=== PATIENT | male | born 1955 | race Caucasian/White ===

== ENCOUNTER 2019-03-05 14:22 | Inpatient (IN) | payer MEDICARE, MEDICAID ==
[~2019-03-05] VITALS: Ht 175.3 cm; Wt 58.5 kg
--- NOTE | 2019-03-05 14:30 | NUR ---
ED Nurse Note: Pt BIBA from [facility] d/t low BP. Pt awake, verbal, confused. On room air no acute distress noted. Placed on hospital gown, cont. front desk monitor, and pulse ox.
--- NOTE | 2019-03-05 14:34 | Emergency Room Report ---
History of Present Illness General Chief Complaint: General Complaint Source: Medical Record, EMS Present Illness HPI 63-year-old male presents with failure to thrive, not eating, history of dementia, start date greater than 2 days, no known aggravating relieving factors severity is severe, constant, patient has been throwing up by sticking his fingers in his mouth refusing to eat patient is unable to give a history keeps yelling water Allergies: Coded Allergies: HALOPERIDOL (Verified Allergy, Intermediate, 03/05/19) Patient History Limited by: medical condition - Dementia Past Medical History: see triage record Reviewed Nursing Documentation: PMH: Agreed; PSxH: Agreed Review of Systems All Other Systems: limited - Dementia Physical Exam Vital Signs Date Time Temp Pulse Resp B/P (MAP) Pulse Ox O2 Delivery O2 Flow Rate FiO2 03/05/19 14:21 97.9 80 16 100/60 (73) 97 Room Air Sp02 EP Interpretation: reviewed, normal General Appearance: alert, cachetic, Chronically Ill Head: normocephalic, atraumatic Eyes: bilateral eye PERRL, bilateral eye EOMI ENT: uvula midline, dry mucus membranes Neck: supple, thyroid normal, supple/symm/no masses Respiratory: lungs clear, no respiratory distress, no retraction, no accessory muscle use Cardiovascular #1: normal peripheral pulses, regular rate, rhythm, no edema, no gallop, no murmur Gastrointestinal: non tender, soft, no guarding, no rebound Musculoskeletal: normal inspection Neurologic: alert, responsive Skin: no rash, warm/dry Medical Decision Making Diagnostic Impression: Primary Impression: Failure to thrive in adult Additional Impression: Dehydration ER Course 63-year-old male history of dementia presents with failure to thrive, dehydration patient is refusing to eat foods worsening psychosis, sepsis. Labs show anemia, elevated BUN to creatinine ratio, fluid started We will defer abx administration to Dr. Molina Patient admitted to Dr. Molina Laboratory Tests Test 03/05/19 16:32 03/05/19 17:00 White Blood Count 7.9 K/UL (4.8-10.8) Red Blood Count 3.00 M/UL (4.70-6.10) L Hemoglobin 7.8 G/DL (14.2-18.0) L Hematocrit 24.4 % (42.0-52.0) L Mean Corpuscular Volume 81 FL (80-99) Mean Corpuscular Hemoglobin 26.0 PG (27.0-31.0) L Mean Corpuscular Hemoglobin Concent 31.9 G/DL (32.0-36.0) L Red Cell Distribution Width 13.0 % (11.6-14.8) Platelet Count 478 K/UL (150-450) H Mean Platelet Volume 4.9 FL (6.5-10.1) L Neutrophils (%) (Auto) 68.5 % (45.0-75.0) Lymphocytes (%) (Auto) 20.7 % (20.0-45.0) Monocytes (%) (Auto) 6.6 % (1.0-10.0) Eosinophils (%) (Auto) 2.7 % (0.0-3.0) Basophils (%) (Auto) 1.5 % (0.0-2.0) Prothrombin Time 10.8 SEC (9.30-11.50) Prothrombin Time INR 1.0 (0.9-1.1) PTT 29 SEC (23-33) Sodium Level 137 MMOL/L (136-145) Potassium Level 3.7 MMOL/L (3.5-5.1) Chloride Level 103 MMOL/L (98-107) Carbon Dioxide Level 26 MMOL/L (21-32) Anion Gap 8 mmol/L (5-15) Blood Urea Nitrogen 34 mg/dL (7-18) H Creatinine 0.7 MG/DL (0.55-1.30) Estimate Glomerular Filtration Rate > 60 mL/min (>60) Glucose Level 96 MG/DL (74-106) Lactic Acid Level 1.90 mmol/L (0.4-2.0) Calcium Level 8.4 MG/DL (8.5-10.1) L Phosphorus Level 2.4 MG/DL (2.5-4.9) L Magnesium Level 1.8 MG/DL (1.8-2.4) Total Bilirubin 0.2 MG/DL (0.2-1.0) Aspartate Amino Transferase (AST) 12 U/L (15-37) L Alanine Aminotransferase (ALT) 11 U/L (12-78) L Alkaline Phosphatase 83 U/L (46-116) Total Creatine Kinase 38 U/L (26-308) Creatine Kinase MB 1.4 NG/ML (0.0-3.6) Creatine Kinase MB Relative Index 3.6 Pro-B-Type Natriuretic Peptide 182 pg/mL (0-125) H Total Protein 6.1 G/DL (6.4-8.2) L Albumin 1.9 G/DL (3.4-5.0) L Globulin 4.2 g/dL Albumin/Globulin Ratio 0.5 (1.0-2.7) L Lipase 95 U/L (73-393) Iron Level Pending Unsaturated Iron Binding Pending Vitamin B12 Level Pending Thyroid Stimulating Hormone (TSH) Pending EKG Diagnostic Results EKG Time: 14:54 EP Interpretation: NSR, rate 86, QTc 411, no acute ST elevations Rhythm Strip Diag. Results Rhythm Strip Time: 15:30 EP Interpretation: yes Rate: 84 Rhythm: NSR, no PVC's, no ectopy Chest X-Ray Diagnostic Results Chest X-Ray Diagnostic Results : Chest X-Ray Ordered: Yes # of Views/Limited/Complete: 1 View Indication: Other - Altered mental status EP Interpretation: Yes Interpretation: other - Left pleural effusion Impression: Other - Left pleural effusion Electronically Signed by: Lawrence Villalba MD Last Vital Signs Date Time Temp Pulse Resp B/P (MAP) Pulse Ox O2 Delivery O2 Flow Rate FiO2 03/05/19 14:21 97.9 80 16 100/60 (73) 97 Room Air Disposition: ADMITTED INPATIENT Condition: Stable Lawrence Villalba MD Mar 05, 2019 14:34
[2019-03-05] MEDS ORDERED: ACETAMINOPHEN325 M1 ORAL (14:38)
[2019-03-05] MEDS ORDERED: DEPAKOTE250 MG PO (14:38)
[2019-03-05] MEDS ORDERED: ZYPREXA10 MG ORAL (14:38)
[2019-03-05] MEDS ORDERED: FERROUS SULFAT325 MG ORAL (14:38)
[2019-03-05] MEDS ORDERED: PROTONIX40 MG ORAL (14:38)
[2019-03-05] MEDS ORDERED: COLACE100 MG ORAL (14:38)
[2019-03-05] MEDS ORDERED: VITAMIN D1000 UNI1 ORAL (14:38)
[2019-03-05] MEDS ORDERED: CLOZAPINE200 MG PO (14:38)
[2019-03-05] MEDS ORDERED: DDAVP0.2 MG PO (14:38)
[2019-03-05] MEDS ORDERED: BENZTROPINE ME0.5 MG PO (14:38)
[2019-03-05] MEDS ORDERED: DUONEB 0.5-3(2.53 ML HHN (14:38)
[2019-03-05] MEDS ORDERED: SENNA8.6 M2 PO (14:38)
[2019-03-05] MEDS ORDERED: MULTIVITAMINS1 EAC2 ORAL (14:38)
[2019-03-05] MEDS ORDERED: DULCOLAX10 MG RC (14:38)
[2019-03-05] MEDS ORDERED: FLEET ENEMA133 ML RECTAL (14:38)
[2019-03-05] MEDS ORDERED: TRAZODONE HCL150 MG ORAL (14:38)
--- NOTE | 2019-03-05 14:56 | Diagnostic Imaging Report ---
Indication: Dyspnea Comparison: None A single view chest radiograph was obtained. Findings: Lungs are hyperexpanded. There is a left pleural effusion suspected. Heart size is normal. Bones are osteopenic. IMPRESSION: Suspected left pleural effusion. COPD
[2019-03-05] MEDS ORDERED: DiphenhydrAMINE 50mg/ml Inj IVP ONE (15:00)
[2019-03-05] MEDS ORDERED: LORazepam Inj 2mg/ml 1ml IV ONE (15:00)
--- NOTE | 2019-03-05 15:00 | NUR ---
ED Nurse Note: Pt came in with left lower leg peripheral IV 22g, intact and patent.
[2019-03-05 16:50] LABS: HEMATOCRIT 24.4 % (42.0-52.0); HEMOGLOBIN 7.8 G/DL (14.2-18.0); MEAN CORPUSCULAR VOLUME 81 FL (80-99); PLATELET COUNT 478 K/UL (150-450); WHITE BLOOD COUNT 7.9 K/UL (4.8-10.8)
[2019-03-05 16:52] LABS: BASOPHILS % (AUTO) 1.5 % (0.0-2.0); EOSINOPHILS % (AUTO) 2.7 % (0.0-3.0); LYMPHOCYTES % (AUTO) 20.7 % (20.0-45.0); MONOCYTES % (AUTO) 6.6 % (1.0-10.0); NEUTROPHILS % (AUTO) 68.5 % (45.0-75.0)
--- NOTE | 2019-03-05 17:00 | NUR ---
ED Nurse Note: IV fluids infusing; Patient remains in bed, confused, combative. VSS stable at this time.
[2019-03-05 17:09] LABS: ANION GAP 8 mmol/L (5-15); BLOOD UREA NITROGEN 34 mg/dL (7-18); CALCIUM 8.4 MG/DL (8.5-10.1); CARBON DIOXIDE 26 MMOL/L (21-32); CHLORIDE 103 MMOL/L (98-107); CREATININE 0.7 MG/DL (0.55-1.30); POTASSIUM 3.7 MMOL/L (3.5-5.1); SODIUM 137 MMOL/L (136-145)
[2019-03-05 17:13] LABS: ALANINE AMINOTRANSFERASE 11 U/L (12-78); ALBUMIN 1.9 G/DL (3.4-5.0); ALBUMIN/GLOBULIN RATIO 0.5 (1.0-2.7); ALKALINE PHOSPHATASE 83 U/L (46-116); ASPARTATE AMINO TRANSFERASE 12 U/L (15-37); BILIRUBIN,TOTAL 0.2 MG/DL (0.2-1.0); CKMB 1.4 NG/ML (0.0-3.6); CREATINE KINASE 38 U/L (26-308); PHOSPHORUS 2.4 MG/DL (2.5-4.9)
[2019-03-05 17:37] VITALS: BP 106/85
[2019-03-05] MEDS ORDERED: Milk of Magnesia 30ml Ud ORAL PRN (17:45)
[2019-03-05] MEDS ORDERED: Morphine Sulfate 2mg/ml Inj(IV/IM USE ONLY) IVP PRN (17:45)
[2019-03-05 18:18] VITALS: BP 115/78
--- NOTE | 2019-03-05 18:23 | NUR ---
ED Nurse Note: MRSA/CRE/VRE swabs taken, sent down to lab.
[2019-03-05 18:26] LABS: % IRON SATURATION 9 % (15-50); IRON 15 ug/dL (50-175); TOTAL IRON BINDING CAPACITY 175 ug/dL (250-450)
--- NOTE | 2019-03-05 18:27 | NUR ---
ED Nurse Note: Report given to RANJANA Reilly via telephone.
[2019-03-05] MEDS ORDERED: Enoxaparin 30mg Inj SUBQ SCH (18:45)
--- NOTE | 2019-03-05 18:55 | NUR ---
TRANSFER TO FLOOR: Patient transferred to SDU as telemetry overflow, room 236-2 as ordered, per Dr Molina. Report given to RANJANA Reilly. Transferred patient via VIDYA luciano protocol. Patient remained in stable condition.
[2019-03-05] MEDS: D5W w/KCl 20mEq 1,000 ML IV SCH (19:18)
--- NOTE | 2019-03-05 19:19 | NUR ---
HAND-OFF: Report given to juancarlos drake.
--- NOTE | 2019-03-05 19:25 | NUR ---
NURSE NOTES: Received report form RANJANA Reilly, pt. in bed awake, pt. appears to be A/O X's 1- to name- confused. folder inspector on, pt. appears to be sating well on room air at 97%- no distress noted, bed alarm on, side rails up x's3 and safety brakes engaged, bed alarm on, bed in lowest position, pt. oriented to room and pt. teaching done, VS taken and full body assessment done- skin intact, unable to determine pupils, pt. was brought up from ER and orders already received- prior shift, KISHOR 20G IV intact and patent running D5W w/ KCL 20meq at 5occ/hr, pt. also has Left lower leg IV 22G- will ask doctor if he would like to continue, safety measures continued, will continue to monitor pt. and with plan of care. Addendum: 03/05/19 at 2006 by CARMEN PARTIDA RN RN side rails padded for seizure precautions- no seizure activity noted upon assessment.
[2019-03-05 20:00] VITALS: BP 105/61
[2019-03-05] MEDS: Enoxaparin 40mg Inj SUBQ SCH (20:45)
[2019-03-06] VITALS: BP 102/64
--- NOTE | 2019-03-06 | NUR ---
HAND-OFF: Report given to Justina Rn, in telemetry- pt. remains stable during transfer and no distress noted. Pt. transferred to room 212-2.
--- NOTE | 2019-03-06 00:10 | NUR ---
NURSE NOTES: Pt received from MALORIE from RANJANA Lamb alert and oriented x1 to name only. IV site asymptomatic and patent on L lower leg and R forearm, running to D5W with 20 KCl at 75 as ordered. Bed in lowest position, bed alarm on. Skin intact. Call light and belongings within reach.
[2019-03-06 04:00] VITALS: BP 91/83
[2019-03-06] MEDS ORDERED: LORazepam 1mg tab ORAL PRN (04:15)
--- NOTE | 2019-03-06 07:10 | NUR ---
NURSE NOTES: Nurse report given by RANJANA Frank. Patient's confused, AO x1, no s/s of acute distress or SOB. Bed low and locked, call light within reach, side rails x 3 padded for seizure precaution, safety alarm is on. IVs are present, intact, patent, asymptomatic and running fluid. BP was low 73/48, notified by HELICOPTER PILOT INSTRUCTOR so Zac RN and receiving nurse checked with smaller blood pressure and it is back 110/58. Will continue to monitor.
--- NOTE | 2019-03-06 07:20 | NUR ---
HAND-OFF: Report given to RANJANA Loredo. Plan of care endorsed.
[2019-03-06 07:25] LABS: BASOPHILS % (AUTO) 1.2 % (0.0-2.0); EOSINOPHILS % (AUTO) 2.1 % (0.0-3.0); HEMATOCRIT 26.8 % (42.0-52.0); HEMOGLOBIN 8.5 G/DL (14.2-18.0); LYMPHOCYTES % (AUTO) 21.9 % (20.0-45.0); MEAN CORPUSCULAR VOLUME 82 FL (80-99); MONOCYTES % (AUTO) 7.7 % (1.0-10.0); NEUTROPHILS % (AUTO) 67.1 % (45.0-75.0); PLATELET COUNT 545 K/UL (150-450); RED BLOOD COUNT 3.27 M/UL (4.70-6.10); RED CELL DISTRIBUTION WIDTH 14.7 % (11.6-14.8); WHITE BLOOD COUNT 6.8 K/UL (4.8-10.8)
[2019-03-06 08:00] VITALS: BP 110/58
--- NOTE | 2019-03-06 08:06 | Consultation ---
Consult Note Consult Note HEMATOLOGY/ ONCOLOGY CONSULTATION DATE OF CONSULTATION: 03/06/2019 DATE OF : 1955 NIDIA NEWBY: Dr. Kranthi Molina REASON FOR REFERRAL: Thrombocytosis HISTORY OF PRESENT ILLNESS: This is a 63 year old male patient with history of dementia, he is a poor historian and is currently confused. He presented to [facility] for failure to thrive, no appetitie not eating po solids or liquids per ER documentation and snf. He has history of dementia and HF. Upon lab work he was found to be nemic with hgb 7.8 and platelet count of 478, therefore we were consulted for further evaluation. PAST MEDICAL HISTORY: Dementia, HF PAST SURGICAL HISTORY: Unknown FAMILY HISTORY: Unknown SOCIAL HISTORY: Resides in nursing facility unknown about smoking, etoh use and drug use. ALLERGIES: HALDOL ROS difficult to assess PE General Appearance: alert, confused, cachetic, Chronically Ill Head: normocephalic, atraumatic Eyes: bilateral eye PERRL, bilateral eye EOMI ENT: uvula midline, dry mucus membranes Neck: supple, thyroid normal, supple/symm/no masses Respiratory: lungs clear, no respiratory distress Cardiovascular #1: normal peripheral pulses, regular rate, rhythm, no edema, no gallop, no murmur Gastrointestinal: non tender, soft, no guarding, no rebound Musculoskeletal: normal inspection Neurologic: alert, responsive Skin: no rash, warm/dry LAB: 03/05: wbc 7.9, hgb 7.8, [plt 478 03/06: wbc 6.8, hgb 8.5, plt 545 IMAGING: reviewed MEDS: reviewed ASSESSMENT AND REC'S: 1. Anemia of chronic disease, multifactorial --> hgb 7.8 --> 8.5 --> peripheral smear ordered --> transfuse for hgb< 7 as needed --> order anemia panel 2. Thrombocytosis --> acute phase reactant continue to monitor daily cbc --> PLT 478--> 545 --> Will order ROLAN 2 if no improvement in next few days 3. Dementia --> continue supportive care 4. Failure to Thrive --> check CEA level pending at this time, imaging reviewed less likely malignancy --> consider G tube if continues to lose weight and does not toleratie po intake consider GI eval --> consider appetite stimulants 5. Cachexia --> liekly due to above The time the note was written does not correspond to the time the patient was seen. Greatly appreciate consultation Pt was seen by PHYSICAL DESIGN ENGINEER and plan of care was discussed with supervising Physician who agrees. Shaylee Shaw PHYSICAL DESIGN ENGINEER Mar 06, 2019 08:06
--- NOTE | 2019-03-06 10:11 | NUR ---
NURSE NOTES: Md Molina was notified about pt behavior of sticking his fingers down his throat and making himself throw up... He wanted me to notify Md Mccann and his psychologist and place the pt on restraints.. order in and Mds notified.
--- NOTE | 2019-03-06 10:45 | Consultation ---
DATE OF CONSULTATION: 03/06/2019 INITIAL PSYCHIATRIC EVALUATION CONSULTING PHYSICIAN: Jim Mccann M.D. HISTORY OF PRESENT ILLNESS: This is a 63-year-old male patient, who came to the hospital. Reason why he came into the hospital was because he was brought in because he had failure to thrive. He is not eating, history of dementia. He has been trying to intestinally through up apparently at this facility by sticking his fingers in his mouth, refusing to eat and constantly asking for water. He is very psychotic, disorganized, and confused. That is why, daily psychiatric consultation requested. MEDICAL HISTORY: The patient has a medical history significant for failure to thrive. He also has dehydration. ALLERGIES: To Haldol. PSYCHOTROPIC MEDICATIONS FOR ADMISSION: Per chart, Depakote 500 mg twice a day, Zyprexa 10 mg daily, and trazodone 150 mg at bedtime. SUBSTANCE ABUSE HISTORY: Denies. PAIN ASSESSMENT: 0/10 pain. DEVELOPMENTAL PROBLEMS: Denies. SOCIAL HISTORY: This patient is currently living in [facility]. Financially supported by [facility] and Medicare. MENTAL STATUS EXAMINATION: This is a 63-year-old male. Appearance is disheveled. Attitude, irritable and agitated. Affect, guarded and restricted. Intellect, poor. Mood, depressed and anxious. Motor activity, psychomotor agitation. Attention span is poor. Orientation x2. Speech is pressured. Thought process, disorganized and illogical. Insight and judgment are poor. DIAGNOSES: 1. Paranoid schizophrenia with acute exacerbation secondary. 2. Medical, failure to thrive. 3. Psychosocial stressors, financial. 4. Function impairment is mild. PLAN: Plan for this patient is to treat him with Zyprexa 5 twice a day and Clozaril 50 mg at bedtime, titrate up Clozaril as needed. A 20 minutes of cognitive behavioral therapy to help him identify automatic negative thoughts and help him convert those negative thoughts to more positive thoughts to reduce depression, anxiety, and suicidality. ESTIMATED LENGTH OF STAY: Three to seven days. PROGNOSIS: Poor. DISPOSITION: Transfer to [facility] when medically cleared. Jmi Mccann M.D. DR: TRACY JOB#: [id number] CC:
[2019-03-06 12:00] VITALS: BP 130/66
--- NOTE | 2019-03-06 13:10 | Consultation ---
Consult Note Consult Note HPI: 63yo gentleman with PMH below presents with FTT. Per [facility] report, pt was reporting abdominal pain and generalized weakness. Pt has had poor po intake. Pt has been sticking his finger into his mouth and inducing vomiting. Pt currently has vomitus on himself. Unable to obtain history. Pt is screaming asking for "mommy" and "nurse." Pt was found to be hypotensive so pt is admitted to telemetry. ROS: per HPI PMH: Dementia Parkinson Anemia GERD Epilepsy FTT Paranoid Schizophrenia Legally blind Meds: reviewed All: Haldol SHx: [facility] resident FHx: noncontributory VS: reviewed Gen: NAD HEENT: anicteric sclera CV: RRR Resp: RRR. unlabored. Abd: soft. no TTP. nondistended. Neuro: awake. does not answer questions appropriately. Psych: screaming Exam limited due to pt's poor cooperation Labs: reviewed Assessment: 63yo gentleman with PMH below presents with FTT. Per [facility] report, pt was reporting abdominal pain and generalized weakness. Pt has had poor po intake. Pt has been sticking his finger into his mouth and inducing vomiting. Pt currently has vomitus on himself. Unable to obtain history. Pt is screaming asking for "mommy" and "nurse." Afebrile No leukocytosis No lactic acidosis Hypotension hypovolemic? 03/05 CXR: COPD. suspected left pleural effusion. No diarrhea r/o bacteremia 03/05 BCx: P r/o UTI UA and UCx Pressure ulcer pending surgeon consult Anemia Thrombocytosis FTT Dementia Paranoid Schizophrenia Plan: monitor off antibiotics f/u bcx f/u UA and UCx aspiration precaution elevate HOB reorientation wound care per hospital protocol Thank you for this consult. [facility] Will continue to follow the patient with you. Prabha Dunham MD Mar 06, 2019 13:10
[2019-03-06] MEDS: D5W w/KCl 20mEq 1,000 ML IV SCH (14:16)
--- NOTE | 2019-03-06 15:22 | NUR ---
RD ASSESSMENT & RECOMMENDATIONS SEE CARE ACTIVITY FOR COMPLETE ASSESSMENT DAILY ESTIMATED NEEDS: Needs based on Underweight, 50kg 30-35 kcals/kg 8800-6701 total kcals 1-1.6 g protein/kg 50-80 g total protein 25-30 mL/kg 7797-1555 total fluid mLs NUTRITION DIAGNOSIS: Increased kcal/prot needs R/T underweight status as evidenced by noted w/ severe generalized wasting, pt at 62% IBW, BMI of 15.0, admitted w/ FTT dx. CURRENT DIET: REGULAR PO DIET RECOMMENDATIONS: REGULAR/ texture as tolerated or per CORRECTION OFFICER ENTERAL NUTRITION RECOMMENDATIONS: Jevity 1.2 @ 60ml/hr x 24 hrs to provide 1440ml, 1728kcal, 79g prot, 1162ml free water WITH CONTINUED POOR/INADEQUATE ORAL INTAKE AND IF TF PART OF POC, consider obtaining GI access, initiate nonoral feeding -> initiate Jevity 1.2 @ 20ml/hr x 6hrs -> advance 10ml q 4-6 hrs as tolerated to goal rate -> HOB over 30 degrees -> water flush of 100ml q 6hrs ADDITIONAL RECOMMENDATIONS: * Calibrated bedscale wt for accurate CBW -> consider daily wt monitoring given severely underweight status * Monitor PO intake closely -> rec PHOENIX COUNT x 48 hrs * Consider nonoral feeding if pt cont w/ poor PO intake, refusing meals -> episodes of self-induced vomitting and spitting food out * Monitor lytes, replete as needed
[2019-03-06 16:00] VITALS: BP 99/54
--- NOTE | 2019-03-06 16:03 | NUR ---
NURSE NOTES: Attempted to collect culture urine with straight cath per Dr. Dunham's order. Nurse tried twice, however the catheter kept recoil. Charge nurse Nicholas tried one more time but still unsuccessful. Bladder scan showed 191ml residual after removal of catheter and also noticed blood in tubing. Vital signs are stable. Will closely monitor. Condom catheter was reapplied.
--- NOTE | 2019-03-06 17:00 | Consultation ---
DATE OF CONSULTATION: 03/06/2019 CHIEF COMPLAINT: Failure to thrive. HISTORY OF PRESENT ILLNESS: Most of history taken from chart. This is a 63-year-old male, psychiatric patient was brought to the hospital because he was not eating and was found to be profoundly anemic with hemoglobin of 7.8. According to the nursing notes, the patient apparently put his fingers in his mouth, trying to threw up and he has lost a lot of weight. PAST MEDICAL HISTORY: Psychiatric problems otherwise no known medical problems that I can see from the chart. PAST SURGICAL HISTORY: Unknown. ALLERGIES: Haloperidol. MEDICATIONS: Please see medication reconciliation list. SOCIAL HISTORY: Currently he is a shelter resident. No recent history of tobacco, alcohol, or illicit drug abuse. FAMILY HISTORY: Noncontributory. REVIEW OF SYSTEMS: Limited. PHYSICAL EXAMINATION: VITAL SIGNS: Temperature is 97.7, pulse 90, respirations 20, blood pressure 110/58. HEENT: Normocephalic and atraumatic. Mild pale conjunctivae. NECK: Supple. No evidence of obvious lymphadenopathy. CARDIOVASCULAR: Regular rate and rhythm. Plus S1 and S2. LUNGS: Decreased breath sounds bilaterally based on the supine exam. ABDOMEN: Soft and nontender. No rebound. No guarding. No peritoneal sign. EXTREMITIES: No cyanosis. No clubbing. No edema LABORATORY AND DIAGNOSTIC DATA: White count 6.8, hemoglobin 8.4, hematocrit 26, platelet count is 545. Chem-7, sodium 137, potassium 3.7, BUN 34, creatinine 0.7. Iron saturation . Albumin is 1.9. ASSESSMENT AND PLAN: The patient is a 63-year-old male with severe psychiatric problems with significant failure to thrive with albumin of 1.9, iron saturation , dehydration with BUN creatinine ratio of 34 over 0.7, so this patient most probably very malnourished, dehydrated, iron deficient from malnutrition. Our plan will be to start IV iron for iron deficiency. Send the folic acid and replace as needed. Followup CEA. Followup oncology. Follow psych. The patient at one point might need a PEG but at this time we are going to wait and see if treated adequately with psychiatric medication and if he continues to have the same problem, we will consider doing PEG. I want to thank Dr. Kirill Molina for this kind referral. Maximoeriberto Chavez M.D. DR: Imtiaz JOB#: [id number] CC: Kirill Molina D.O.
--- NOTE | 2019-03-06 17:16 | NUR ---
NURSE NOTES:WOUND CARE NOTES:Pt presented on admission very emaciated. Skin assessment completed with jose l nurse. An area of non-blanching erythema noted to L trochanteric.Sacrum is pink and blanchable. All other bony prominences assessed and no areas of skin concerns or evidence of skin breakdown noted. Bony prominences Sacrum,R and L hips/Trochanters covered with Optifoam drsgs. Skin Barrier applied to Both heels including malleoli, each sites covered with Optifoam drsgs. Pt positioned on side with Pillow and both heels floated off mattress with pillow. Tx.Plan:Apply Moisture Barrier paste to Sacrum. Cover with Optifoam drsg. Change every 3 days and prn. Apply Cavilon Skin Barrier to R and L trochanteric. Cover each site with Optifoam drsgs. Change every 7 days and prn. Apply Cavilon Skin Barrier to Both heels and Malleoli both feet. Cover each site with Optifoam drsgs. Change every 7 days and prn. Apply Barrier wipes to bony prominences and covered as needed with Optifoam drsgs. Reposition at least every 2hours or as tolerated. Off-load heels with pillow.
--- NOTE | 2019-03-06 19:27 | NUR ---
HAND-OFF: Report given to RANJANA Avalos. Patient's stable. Plan of care endorsed. .
--- NOTE | 2019-03-06 19:30 | NUR ---
NURSE NOTES: Received pt from RANJANA Loredo. Pt asleep. Bed in lowest position. Call light within reach. Will continue to monitor.
[2019-03-06 20:00] VITALS: BP 118/55
[2019-03-06] MEDS: Iron Sucrose 100 MG in NS 55 ML IV SCH (21:51)
[2019-03-06] MEDS: Enoxaparin 40mg Inj SUBQ SCH (21:54)
--- NOTE | 2019-03-06 22:01 | History and Physical Report ---
DATE OF ADMISSION: 03/05/2019 CONSULTANTS: 1. Ronald Barajas M.D. 2. Jim Mccann M.D. 3. Maximo Chavez M.D. CHIEF COMPLAINT: Failure to thrive, malnutrition, and anemia. BRIEF HISTORY: This is a 63-year-old male from [facility], presented with the above-mentioned diagnosis, currently lethargic in bed, confused, not talking much. REVIEW OF SYSTEMS: Unavailable. PAST MEDICAL HISTORY: Failure to thrive. PAST SURGICAL HISTORY: Unknown. MEDICATION: Clozaril, olanzapine, enoxaparin, famotidine, Tylenol, morphine, bisacodyl, magnesium, and Zofran. ALLERGY: Haldol. SOCIAL HISTORY: Unable to obtain secondary to the patient's confusion. PHYSICAL EXAMINATION: GENERAL: Confused in bed, oriented x3, in no acute distress. VITAL SIGNS: Temperature is 97 degrees, pulse 80, respirations 20, and blood pressure 130/66. CARDIOVASCULAR: No murmurs. LUNGS: Poor air exchange. ABDOMEN: Bowel sounds distant. EXTREMITIES: No cyanosis, clubbing, or edema. NEUROLOGIC: The patient moves all extremities, slightly weak. Not following directions. LABORATORY AND DIAGNOSTIC DATA: Labs at this time show hemoglobin and hematocrit are 8.5 and 26, platelets 545,000. BUN . Albumin 1.9. INR is 1.0. PTT 29. ASSESSMENT: 1. Failure to thrive. 2. Malnutrition. 3. Anemia. PLAN: 1. Dietary and PT evaluation. 2. Resume home medications. 3. Psychiatric treatment. 4. CBC and BMP in the morning. Kirill Molina D.O. DR: WINSTON JOB#: [id number] CC:
[2019-03-07] VITALS: BP 105/74
[2019-03-07 04:00] VITALS: BP 99/71
--- NOTE | 2019-03-07 05:29 | NUR ---
NURSE NOTES: Called and left a message with Dr. Molina regarding pts emesis. Requested IV form of anxiety and pain meds. He said ok, and also requested swallow and dietary eval. Will input orders aND WILL CONTINUE TO MONITOR.
[2019-03-07] MEDS ORDERED: LORazepam Inj 2mg/ml 1ml IV PRN (05:45)
[2019-03-07 07:21] LABS: ANION GAP 9 mmol/L (5-15); BLOOD UREA NITROGEN 24 mg/dL (7-18); CALCIUM 8.8 MG/DL (8.5-10.1); CARBON DIOXIDE 25 MMOL/L (21-32); CHLORIDE 99 MMOL/L (98-107); CREATININE 0.6 MG/DL (0.55-1.30); POTASSIUM 4.7 MMOL/L (3.5-5.1); SODIUM 133 MMOL/L (136-145)
--- NOTE | 2019-03-07 07:21 | NUR ---
HAND-OFF: Report given to RANJANA May. Pt stable.
[2019-03-07 07:35] LABS: BASOPHILS % (AUTO) 1.2 % (0.0-2.0); EOSINOPHILS % (AUTO) 1.2 % (0.0-3.0); HEMATOCRIT 35.6 % (42.0-52.0); HEMOGLOBIN 11.3 G/DL (14.2-18.0); LYMPHOCYTES % (AUTO) 26.9 % (20.0-45.0); MEAN CORPUSCULAR VOLUME 82 FL (80-99); MONOCYTES % (AUTO) 7.8 % (1.0-10.0); NEUTROPHILS % (AUTO) 62.9 % (45.0-75.0); PLATELET COUNT 543 K/UL (150-450); RED BLOOD COUNT 4.36 M/UL (4.70-6.10); RED CELL DISTRIBUTION WIDTH 15.1 % (11.6-14.8); WHITE BLOOD COUNT 5.4 K/UL (4.8-10.8)
[2019-03-07 08:00] VITALS: BP 121/69
--- NOTE | 2019-03-07 08:02 | NUR ---
NURSE NOTES: Report received from RANJANA Avalos. in bed. Denies any pain at this time. Pt shows no signs of distress, A+Ox1-2. Respirations are even and unlabored on RA. Patient is on bilateral soft restraints.IV site patent with fluids running and patient tolerating well. Bed is at lowest position, brakes engaged, siderails x3, bed alarm on, and call light within reach. Pt is in stable condition at this time; will continue with the plan of care.
--- NOTE | 2019-03-07 08:50 | NUR ---
PT EVALUATION NOTE Patient seen for initial evaluation, see complete evaluation for details. Patient presents with generalized weakness, impaired balance and impaired cognition which affects patient's ability to perform mobility tasks safely. Patient required max/dependent assist of 2 people to come to sitting at the EOB. Patient unable to stand or ambulate at this time. Per nursing staff at SNF, prior to hospitalization patient was able to ambulate with nursing staff assistance. Patient will be seen by PT for 3 day trial and then will be re-assessed for appropriateness of skilled inpatient PT intervention. Recommend discharge to SNF once medically cleared by MD. Addendum: 03/07/19 at 1115 by GARRISON BARRERA PT Amended: Links added.
--- NOTE | 2019-03-07 09:23 | General Progress Note ---
Assessment/Plan Problem List: (1) Anemia ICD Codes: D64.9 - Anemia, unspecified SNOMED: 167058780 (2) Malnutrition ICD Codes: E46 - Unspecified protein-calorie malnutrition SNOMED: 71868728 (3) Failure to thrive in adult ICD Codes: R62.7 - Adult failure to thrive SNOMED: 008907286 (4) Dehydration ICD Codes: E86.0 - Dehydration SNOMED: 90487802 Status: stable, progressing Assessment/Plan: pt diet gi psyc f/u cbc bmp am psyc transfer Subjective Constitutional: Reports: weakness Allergies: Coded Allergies: HALOPERIDOL (Verified Allergy, Intermediate, 03/05/19) All Systems: reviewed and negative except above Subjective calm in bed confused Objective Last 24 Hour Vital Signs Date Time Temp Pulse Resp B/P (MAP) Pulse Ox O2 Delivery O2 Flow Rate FiO2 03/07/19 04:00 93 03/07/19 04:00 97.8 87 18 99/71 (80) 94 03/07/19 00:00 89 03/07/19 00:00 97.6 92 20 105/74 (84) 93 03/06/19 21:00 Room Air 03/06/19 20:00 98.1 86 18 118/55 (76) 95 03/06/19 20:00 83 03/06/19 16:00 96.9 86 20 99/54 (69) 95 03/06/19 16:00 84 03/06/19 12:00 97.8 51 20 130/66 (87) 93 03/06/19 12:00 87 Intake and Output 03/06/19 03/07/19 19:00 07:00 Intake Total 220 ml Output Total 250 ml Balance -30 ml Intake Oral 220 ml Output Urine Total 250 ml # Voids 1 2 # Bowel Movements 1 Laboratory Tests 03/07/19 05:56: White Blood Count 5.4, Red Blood Count 4.36L, Hemoglobin 11.3#L, Hematocrit 35.6 #L, Mean Corpuscular Volume 82, Mean Corpuscular Hemoglobin 25.9L, Mean Corpuscular Hemoglobin Concent 31.7L, Red Cell Distribution Width 15.1H, Platelet Count 543H, Mean Platelet Volume 4.9L, Neutrophils (%) (Auto) 62.9, Lymphocytes (%) (Auto) 26.9, Monocytes (%) (Auto) 7.8, Eosinophils (%) (Auto) 1.2, Basophils (%) (Auto) 1.2, Sodium Level 133L, Potassium Level 4.7, Chloride Level 99, Carbon Dioxide Level 25, Anion Gap 9, Blood Urea Nitrogen 24H, Creatinine 0.6, Estimat Glomerular Filtration Rate > 60, Glucose Level 84, Calcium Level 8.8, Folate 10.1 Height (Feet): 5 Height (Inches): 9.00 Weight (Pounds): 129 General Appearance: lethargic EENT: normal ENT inspection Neck: normal alignment Cardiovascular: normal peripheral pulses, normal rate, regular rhythm Respiratory/Chest: chest wall non-tender, lungs clear, normal breath sounds Abdomen: normal bowel sounds, non tender, soft Extremities: normal inspection Edema: no edema noted Arm (L), no edema noted Arm (R), no edema noted Leg (L), no edema noted Leg (R), no edema noted Pedal (L), no edema noted Pedal (R), no edema noted Generalized Neurologic: motor weakness Skin: normal pigmentation, warm/dry Kirill Molina DO Mar 07, 2019 09:23
--- NOTE | 2019-03-07 09:56 | NUR ---
ST NOTES: REFERRED FOR SWALLOW EVAL BY DR MOREIRA, SEE FULL REPORT. DYSPHAGIA RISK FACTORS FOR THIS 63 Y.O.M.: ACUTE ISSUES: ADULT FTT (REFUSING EATING, SPITS OUT FOOD, TRIES TO MAKE SELF VOMIT BULIMIC NEW ONSET BEHAVIOR, YELLING OUT) POOR PO INTAKE, SEPSIS WORSENING PSYCHOSIS, GENERAL WEAKNESS, ABDOMINAL PAIN, LUNGS HAVE LEFT PLEURAL EFFUSION, COUGHING UP YELLOW THICK PHLEGM. H/O LIKELY HAD OROPHARYNGEAL DYSPHAGIA (ON DOWNGRADED DIET), GERD (ON MEDS) RECENT PNA AND [place] AT [facility] COPD, PARKINSONS'S DZ (NO MEDS NOW), DEMENTIA, PSYCH ISSUES (ON MEDS FOR SCHIZOPHRENIA, ANXIETY, MDD), SEVERE MALNUTRITION, ALCOHOL AND TOBACCO DEPENDENCE, HTN, DIABETES, VERY CONTRACTED LE. NO POLST NOR AD REGARDING TUBE FEEDINGS PREFERENCES BUT HE IS FULL CODE AT [facility] AND THIN LIQUIDS NOW ON A REGULAR TEXTURE DIET AND THIN LIQUIDS WITH NO TO 25/50/75% INTAKE (REFUSES/SPITS OUT FOOD/MAKES SELF VOMIT AFTER MEAL) ABLE TO EXPRESS NEEDS BUT REPEATS INFORMATION AND YELLS OUT. ON ROOM AIR AND DIFFICULT TO POSITION. D/W RD (NIKKIE) FACT THAT HE IS UNDERWEIGHT IS A HIGH NUTRITION RISK. LIBERALIZED DIET AND ENSURE ENLIVE TID. HAS FOOD PREFERENCES (CHEETOS). INITIAL IMPRESSIONS: S/S OF AT LEAST A MILD TO MODERATE OROPHARYNGEAL DYSPHAGIA WITH INCREASED OVERALL TRANSIT TIMES COMPOUNDED BY BEHAVIORS OF PO REFUSAL OR SPITTING OR MAKING HIMSELF VOMIT. S/S OF ASPIRATION WHEN NOT SWALLOWING HIS SALIVA OR RECLINED BELOW 30 DEGREES. GIVEN THIN LIQUIDS VIA STRAW NO OVERT S/S OF ASPIRATION BUT HAS HIGH RISK OF SILENT ASPIRATION AND HAS COUGHED ON OWN SALIVA AT TIMES. GROSSLY FUNCTIONAL SWALLOW ON NECTAR THICK LIQUIDS SIP VIA CUP. GIVEN PUREED TSP, SWALLOWS WITH FAIR HYOLARYNGEAL EXCURSION WITHIN 4 SECONDS, NO ORAL RESIDUE NOR OVERT ASPIRATION. GIVEN SCRAMBLED EGG, HE SPIT IT OUT. GIVEN MASTICATED SOLID OF SOFT MOIST PASTRY 1/4 PIECE, HE CHEWED FOR ABOUT 5 SECONDS AND TALKED AND SWALLOWED W/O OVERT ASPIRATION. ONLY HAS 2 LOWER TEETH. HAS RISK OF POOR TO NO INTAKE (SPITS OUT OR REFUSES FOOD OR MAKES HIMSELF VOMIT) RECOMMENDATIONS: CONSIDER COMPLETING MODIFIED BARIUM SWALLOW STUDY (IF RECEPTIVE, MAY REFUSE) TO FURTHER ASSESS SWALLOW, DETERMINE SILENT ASPIRATION RISK/ETIOLOGY, AND ATTEMPT TRIAL TX IF PO CONTINUES FOR QUALITY OF LIFE, CONSIDER DOWNGRADING TO [facility] SOFT GROUND AND NECTAR THICK LIQUIDS AND FEED ONE TO ONE USING STRICT ASPIRATION PRECAUTIONS. CONSIDER HIGH CALORIE SUPPLEMENTS IF RECEPTIVE AND PER RD DIET TYPE PER RD (NO REPORT TO DATE AND AT SNF ON REGULAR TYPE DIET) CONSIDER 72 HOUR CALORIE COUNT SKILLED DYSPHAGIA MANAGEMENT AND TX AND COGNITIVE-BEHAVIORAL EVAL/TX FOR COMMUNICATION TIPS EDUCATED/TRAINED RN DANAE AND MALLY ELLIS IN NEED FOR BODY POSITIONING FOR FEEDING (PT GARRISON GAVE SOME ADVICE), SWALLOW/ASPIRATION PRECAUTIONS, AND ORAL CARE/SUCTION. D/W STAFF INCLUDING DR ROSE (GI) WHO IS ON THE CASE AND WILL CONSULT REGARDING NEED FOR NONORAL FEEDINGS IF NEEDED SUPPLEMENT OR PRIMARY MODE OF NUTRITION AND HYDRATION. LEFT MESSAGE WITH [facility] WHO WILL ALSO D/W GI NEEDS.
[2019-03-07] MEDS: D5W w/KCl 20mEq 1,000 ML IV SCH (11:56)
[2019-03-07 12:00] VITALS: BP 103/66
--- NOTE | 2019-03-07 12:52 | GI Progress Note ---
Assessment/Plan Problems: (1) Failure to thrive in adult ICD Codes: R62.7 - Adult failure to thrive SNOMED: 820821968 (2) Dehydration ICD Codes: E86.0 - Dehydration SNOMED: 77352073 (3) Anemia ICD Codes: D64.9 - Anemia, unspecified SNOMED: 634642308 (4) Malnutrition ICD Codes: E46 - Unspecified protein-calorie malnutrition SNOMED: 14198888 Status: stable Status Narrative Discussed with Dr. Chavez. Assessment/Plan The patient is a 63-year-old male with severe psychiatric problems with significant failure to thrive. Possible PEG pending work up d/w with ST, patient non cooperative with evaluation, may need video in the future Diet advance per ST calorie count in progress to evaluate if nutritional needs are met IV iron Follow-up psychiatric recommendations We will follow along on a daily basis with additional recommendations The patient was seen and examined at bedside and all new and available data was reviewed in the patients chart. I agree with the above findings, impression and plan. (Patient seen earlier today. Signature stamp does not reflect patient encounter time.). - Maximo Chavez MD Subjective Subjective limited Objective Last 24 Hour Vital Signs Date Time Temp Pulse Resp B/P (MAP) Pulse Ox O2 Delivery O2 Flow Rate FiO2 03/07/19 12:00 97.9 74 18 103/66 (78) 95 03/07/19 12:00 74 03/07/19 09:00 Room Air 03/07/19 08:00 97.1 85 18 121/69 (86) 95 03/07/19 08:00 85 03/07/19 04:00 93 03/07/19 04:00 97.8 87 18 99/71 (80) 94 03/07/19 00:00 89 03/07/19 00:00 97.6 92 20 105/74 (84) 93 03/06/19 21:00 Room Air 03/06/19 20:00 98.1 86 18 118/55 (76) 95 03/06/19 20:00 83 03/06/19 16:00 96.9 86 20 99/54 (69) 95 03/06/19 16:00 84 Intake and Output 03/06/19 03/07/19 19:00 07:00 Intake Total 220 ml Output Total 250 ml Balance -30 ml Intake Oral 220 ml Output Urine Total 250 ml # Voids 1 2 # Bowel Movements 1 Laboratory Tests Test 03/07/19 05:56 White Blood Count 5.4 K/UL (4.8-10.8) Red Blood Count 4.36 M/UL (4.70-6.10) L Hemoglobin 11.3 G/DL (14.2-18.0) #L Hematocrit 35.6 % (42.0-52.0) #L Mean Corpuscular Volume 82 FL (80-99) Mean Corpuscular Hemoglobin 25.9 PG (27.0-31.0) L Mean Corpuscular Hemoglobin Concent 31.7 G/DL (32.0-36.0) L Red Cell Distribution Width 15.1 % (11.6-14.8) H Platelet Count 543 K/UL (150-450) H Mean Platelet Volume 4.9 FL (6.5-10.1) L Neutrophils (%) (Auto) 62.9 % (45.0-75.0) Lymphocytes (%) (Auto) 26.9 % (20.0-45.0) Monocytes (%) (Auto) 7.8 % (1.0-10.0) Eosinophils (%) (Auto) 1.2 % (0.0-3.0) Basophils (%) (Auto) 1.2 % (0.0-2.0) Sodium Level 133 MMOL/L (136-145) L Potassium Level 4.7 MMOL/L (3.5-5.1) Chloride Level 99 MMOL/L (98-107) Carbon Dioxide Level 25 MMOL/L (21-32) Anion Gap 9 mmol/L (5-15) Blood Urea Nitrogen 24 mg/dL (7-18) H Creatinine 0.6 MG/DL (0.55-1.30) Estimat Glomerular Filtration Rate > 60 mL/min (>60) Glucose Level 84 MG/DL (74-106) Calcium Level 8.8 MG/DL (8.5-10.1) Folate 10.1 NG/ML (8.6-58.9) Height (Feet): 5 Height (Inches): 9.00 Weight (Pounds): 129 General Appearance: no apparent distress Cardiovascular: normal rate Respiratory/Chest: normal breath sounds, no respiratory distress Abdominal Exam: normal bowel sounds, non tender, soft Extremities: non-tender Tereso Israel NP Mar 07, 2019 12:52
--- NOTE | 2019-03-07 13:49 | Infectious Diseases Prog Note ---
Assessment/Plan Assessment/Plan 63yo gentleman with PMH below presents with FTT. Per intermediate report, pt was reporting abdominal pain and generalized weakness. Pt has had poor po intake. Pt has been sticking his finger into his mouth and inducing vomiting. Pt currently has vomitus on himself. Unable to obtain history. Pt is screaming asking for "mommy" and "nurse." Afebrile No leukocytosis No lactic acidosis Hypotension hypovolemic given report of not eating for few days? 03/05 CXR: COPD. suspected left pleural effusion. No diarrhea. Constipated. Bacteremia. contaminant? 03/05 BCx: GPC 03/06 Bcx: P r/o UTI UA and UCx per nurse, skin tact Anemia Thrombocytosis FTT Dementia Paranoid Schizophrenia Plan: monitor off antibiotics f/u GPC speciation obtain repeat bcx f/u UA and UCx aspiration precaution elevate HOB reorientation skin care per hospital protocol Thank you for this consult. [facility] Will continue to follow the patient with you. Subjective Allergies: Coded Allergies: HALOPERIDOL (Verified Allergy, Intermediate, 03/05/19) Subjective Afebrile. still agitated. Not eating. Objective Vital Signs Last 24 Hour Vital Signs Date Time Temp Pulse Resp B/P (MAP) Pulse Ox O2 Delivery O2 Flow Rate FiO2 03/07/19 12:00 97.9 74 18 103/66 (78) 95 03/07/19 12:00 74 03/07/19 09:00 Room Air 03/07/19 08:00 97.1 85 18 121/69 (86) 95 03/07/19 08:00 85 03/07/19 04:00 93 03/07/19 04:00 97.8 87 18 99/71 (80) 94 03/07/19 00:00 89 03/07/19 00:00 97.6 92 20 105/74 (84) 93 03/06/19 21:00 Room Air 03/06/19 20:00 98.1 86 18 118/55 (76) 95 03/06/19 20:00 83 03/06/19 16:00 96.9 86 20 99/54 (69) 95 03/06/19 16:00 84 Height (Feet): 5 Height (Inches): 9.00 Weight (Pounds): 129 Objective Gen: NAD. cachectic HEENT: anicteric sclera CV: RRR Resp: RRR. unlabored. no wheezes or crackles Abd: soft. no TTP. nondistended. Neuro: does not answer questions appropriately. Psych: screaming Exam limited due to pt's poor cooperation Microbiology Date/Time Source Procedure Growth Status 03/05/19 16:32 Blood Blood Culture - Preliminary Gram Positive Cocci Resulted 03/05/19 16:15 Blood Blood Culture - Preliminary Resulted 03/05/19 18:00 Rectum Received Laboratory Tests Test 03/07/19 05:56 White Blood Count 5.4 K/UL (4.8-10.8) Red Blood Count 4.36 M/UL (4.70-6.10) L Hemoglobin 11.3 G/DL (14.2-18.0) #L Hematocrit 35.6 % (42.0-52.0) #L Mean Corpuscular Volume 82 FL (80-99) Mean Corpuscular Hemoglobin 25.9 PG (27.0-31.0) L Mean Corpuscular Hemoglobin Concent 31.7 G/DL (32.0-36.0) L Red Cell Distribution Width 15.1 % (11.6-14.8) H Platelet Count 543 K/UL (150-450) H Mean Platelet Volume 4.9 FL (6.5-10.1) L Neutrophils (%) (Auto) 62.9 % (45.0-75.0) Lymphocytes (%) (Auto) 26.9 % (20.0-45.0) Monocytes (%) (Auto) 7.8 % (1.0-10.0) Eosinophils (%) (Auto) 1.2 % (0.0-3.0) Basophils (%) (Auto) 1.2 % (0.0-2.0) Sodium Level 133 MMOL/L (136-145) L Potassium Level 4.7 MMOL/L (3.5-5.1) Chloride Level 99 MMOL/L (98-107) Carbon Dioxide Level 25 MMOL/L (21-32) Anion Gap 9 mmol/L (5-15) Blood Urea Nitrogen 24 mg/dL (7-18) H Creatinine 0.6 MG/DL (0.55-1.30) Estimat Glomerular Filtration Rate > 60 mL/min (>60) Glucose Level 84 MG/DL (74-106) Calcium Level 8.8 MG/DL (8.5-10.1) Folate 10.1 NG/ML (8.6-58.9) Current Medications Medications (Trade) Dose Ordered Sig/Kimberly Route PRN Reason Start Time Stop Time Status Last Admin Dose Admin Acetaminophen (Tylenol) 650 mg Q4H PRN ORAL Mild Pain (Pain Scale 1-3) 03/05/19 17:45 04/04/19 17:44 Bisacodyl (Dulcolax) 10 mg HSPRN PRN RECTAL Constipation 03/05/19 17:45 04/04/19 17:44 Clozapine (Clozaril) 50 mg QHS ORAL 03/06/19 21:00 03/13/19 20:59 Dextrose (Dextrose 50%) 25 ml Q30M PRN IV Hypoglycemia 03/05/19 17:45 04/04/19 17:44 Dextrose (Dextrose 50%) 50 ml Q30M PRN IV Hypoglycemia 03/05/19 17:45 04/04/19 17:44 Dextrose/ Electrolytes 1,000 ml @ 50 mls/hr Q20H IV 03/05/19 19:00 04/04/19 18:59 03/07/19 11:56 Diphenhydramine HCl (Benadryl) 25 mg Q6H PRN ORAL Itching/Pruritis 03/05/19 17:45 04/04/19 17:44 Enoxaparin Sodium (Lovenox) 40 mg Q24H SUBQ 03/05/19 21:00 04/04/19 20:59 03/06/19 21:54 Famotidine (Pepcid) 20 mg BID ORAL 03/05/19 18:00 04/04/19 17:59 03/07/19 08:40 Iron Sucrose 100 mg/Sodium Chloride 60 ml @ 240 mls/hr BEDTIME IV 03/06/19 21:00 03/10/19 21:14 03/06/19 21:51 Lorazepam (Ativan 2mg/ml 1ml) 1 mg Q4H PRN IV For Anxiety 03/07/19 05:45 03/14/19 05:44 Lorazepam (Ativan) 1 mg Q6H PRN ORAL For Anxiety 03/06/19 04:15 03/13/19 04:14 03/06/19 14:16 Magnesium Hydroxide (Mom) 30 ml HSPRN PRN ORAL Constipation 03/05/19 17:45 04/04/19 17:44 Morphine Sulfate (Morphine Sulfate) 1 mg Q6H PRN IVP PAIN 4-10 03/05/19 17:45 03/12/19 17:44 Olanzapine (ZyPREXA) 5 mg BID ORAL 03/06/19 09:00 04/05/19 08:59 03/07/19 08:40 Ondansetron HCl (Zofran) 4 mg Q6H PRN IVP Nausea & Vomiting 03/05/19 17:45 04/04/19 17:44 Prabha Dunham MD Mar 07, 2019 13:49
--- NOTE | 2019-03-07 14:39 | CDS Physician Query ---
Clarification is required for compliance, coding accuracy, and to reflect severity of illness for this patient Dear Dr. Kirill Molina D.O. Date: 03/07/2019 School Examiner/CDS Name: Nicholas Edwards This is a 63-year-old male from [facility], presented with the above-mentioned diagnosis, currently lethargic in bed, confused, not talking much. CHIEF COMPLAINT: Failure to thrive, malnutrition, and anemia. BMI: 19.0 ALBUMIN: 1.9 Please select the most appropriate option: [] Protein/Calorie Malnutrition [] Mild [] Moderate [] Severe [] Hypoalbuminemia [] Cachexia [] Underweight [] Intestinal malabsorption [] Other [] Unable to determine [] Not Applicable Present on Admission: [] Yes [] No [] Clinically Undetermined Physician signature Date Please also document in your Progress Notes and/or Discharge Summary and indicate if the condition was present on admission. DAVID
[2019-03-07 15:55] VITALS: BP 101/63
--- NOTE | 2019-03-07 18:28 | NUR ---
PROFESSOR OF SOCIOLOGY NOTES [facility], A CLINICIAN WILL BE OUT AT 2100 TO EVALUATE PT FOR TRANSFER. NURSE MADE AWARE.
--- NOTE | 2019-03-07 18:45 | Progress Note ---
DATE: 03/07/2019 SUBJECTIVE: This is a 63-year-old male patient. The patient has failure to thrive, not eating, still trying to throw up sticking his fingers in his mouth, refusing to eat, still demanding water all the time so he does require daily psychiatric consultation. MENTAL STATUS EXAMINATION: This is a 63-year-old male. Appearance is disheveled. Attitude, irritable and agitated. Affect, guarded and restricted. Insight and judgment is poor. DIAGNOSIS: Paranoid schizophrenia with acute exacerbation. PLAN: Plan for this patient is to treat him with a medication regimen consisting of Zyprexa 5 mg twice a day, Ativan 1 mg every 6 hours p.r.n. anxiety and agitation, and also 20 minutes of reality-based supportive psychotherapy. A 20 minutes of cognitive behavioral therapy to help identify automatic negative thoughts and help him convert negative thoughts to more positive thoughts to reduce depression, anxiety, and mood lability. Chart reviewed. Discussed with staff. Seen and assessed in at bedside. Jim Mccann M.D. DR: Rosa JOB#: [id number] CC:
--- NOTE | 2019-03-07 19:29 | NUR ---
HAND-OFF: Report given to Bailey. Endorsed plan of care. Patient is in stable condition.
[2019-03-07 20:00] VITALS: BP 100/64
[2019-03-07] MEDS: Iron Sucrose 100 MG in NS 55 ML IV SCH (21:56)
[2019-03-07] MEDS: Enoxaparin 40mg Inj SUBQ SCH (21:57)
[2019-03-08] VITALS: BP 109/73
--- NOTE | 2019-03-08 00:41 | NUR ---
NURSE NOTES: Called and left a message with Dr. Molina regarding pts transfer. An business systems manager from [facility] came and placed pt on a 5150 for being a danger to self, others, and being gravely disabled. [facility] was called. Eta before 2am. Gave report to RANJANA Vergara. Made aware. Awaiting call back.
--- NOTE | 2019-03-08 04:09 | NUR ---
HAND-OFF: Report given to Ambulance personjodi. Pt stable and going to [facility] urgent care. [place] made aware that [facility] on the way. IV site and tele box removed. Pt stable.
--- NOTE | 2019-03-09 12:57 | Discharge Summary ---
Discharge Summary Discharge Summary _ DATE OF ADMISSION: 03/05/2019 DATE OF DISCHARGE: 03/08/2019 DISCHARGED BY: Dr. Molina REASON FOR ADMISSION: 63 years old male with past medical history of hypertension, dementia, presented from the long term facility with a failure to thrive. Patient apparently was not eating for over 2 days. He was sticking fingers in his mouth to throw up refused to eat and kept yelling water. Upon evaluation vital signs were stable. Laboratory work-up revealed no leukocytosis hemoglobin 7.8 hematocrit 24.4, platelet count 478. Table electrolytes. BUN 34, creatinine 0.7. Glucose 96. Lactic acid 1.9. Stable LFT and lipase. Troponin negative proBNP 182. EKG revealed sinus rhythm no acute ischemic changes. Chest x-ray revealed COPD suspected left pleural effusion patient subsequently admitted for dehydration failure to thrive for further management CONSULTANTS: ID specialist Dr. Dunham GI specialist Dr. Chavez psychiatrist Dr. Mccann HOSPITAL COURSE: Patient admitted to telemetry floor. Patient started on the IV fluids. ID consult was requested for possible IV antibiotics. Patient remained afebrile no leukocytosis no lactic acidosis. Chest x-ray did not show any evidence of pneumonia. Patient had no diarrhea blood culture initially revealed staph epidermidis and repeated blood culture on 1112 are negative. Urine culture revealed mixed gram-positive organism. James specialist initial bacteremia was most likely contaminant. Urinalysis was not obtained. ID specialist recommended to keep patient off antibiotics protein supplements implemented and plan of care as per registered dietitian recommendation. Patient was on calorie count for 48 hours. GI specialist followed. Nutritional needs were met. Hemoglobin hematocrit were closely monitor his goal to keep hemoglobin above 7 patient was monitored off antibiotics. Aspiration precaution maintained. Head of bed was elevated at all time. Swallow evaluation revealed high risk for silent aspiration. Diet Texture provided as per speech therapist recommendation to strict aspiration reflux precaution. Patient was working as a physical therapist. Anemia work-up was consistent with anemia of iron deficiency. Patient started on IV Venofer fair. Prior to discharge hemoglobin 11.3 hematocrit 35.6. Psychiatrist follow. Psychiatrist diagnosed patient is paranoid schizophrenia acute exacerbation. Psychiatric medication regimen was optimized. Cognitive behavioral therapy provided. Patient medically cleared for transfer patient was medically clear for transfer to psychiatric hospital for further management FINAL DIAGNOSES: Protein calorie malnutrition Dehydration Anemia Failure to thrive Paranoid schizophrenia with acute exacerbation DISCHARGE MEDICATIONS: See Medication Reconciliation list. DISCHARGE INSTRUCTIONS: Patient was transferred to psychiatric hospital for further management. I have been assigned to dictate discharge summary for this account. I was not involved in the patient's management. Mayelin Quach NP Mar 09, 2019 12:57
== END 2019-03-08 04:17 | DRG 641 ==
LOC: EDBD 14:22 → EMR 15:17 → 2W 15:22 → EDBEDREQ 17:47 → 2E 23:58
DX: E86.0 Dehydration (principal); E46 Unspecified protein-calorie malnutrition; F20.0 Paranoid schizophrenia; Z88.8 Allergy status to other drugs, medicaments and biological substances; R62.7 Adult failure to thrive; I10 Essential (primary) hypertension; F03.90 Unspecified dementia, unspecified severity, without behavioral disturbance, psychotic disturbance, mood disturbance, and anxiety; D63.8 Anemia in other chronic diseases classified elsewhere; D47.3 Essential (hemorrhagic) thrombocythemia
CPT/HCPCS: 36415; 71045; 80048; 80053; 82378; 82550; 82553; 82607; 82728; 82746; 83540; 83550; 83605; 83690; 83735; 83880; 84100; 84443; 85025; 85610; 85730; 87040; 87081; 87086; 87181; 92610; 93005; 96361; 96374; 96375; 99285; J2405; J7030